=== PATIENT | female | born 1985 | race African-American/Black ===

== ENCOUNTER 2018-08-18 15:25 | Emergency (ER) | payer MEDICAID ==
[~2018-08-18] VITALS: Ht 167.6 cm; Wt 90.0 kg
[2018-08-18] MEDS ORDERED: SODIUM CHLORIDE 0.9% 1,000 ML IV ONE (15:40)
[2018-08-18] MEDS ORDERED: ACETAMINOPHEN 325MG TABLET PO ONE (16:00)
[2018-08-18 16:22] LABS: CLARITY URINE CLEAR (CLEAR); COLOR URINE YELLOW (YELLOW); KETONES URINE TRACE (NEGATIVE); LEUKOCYTE ESTERASE URINE NEGATIVE (NEGATIVE); NITRITE URINE NEGATIVE (NEGATIVE); OCCULT BLOOD URINE NEGATIVE (NEGATIVE); PROTEIN URINE NEGATIVE (NEGATIVE); SPECIFIC GRAVITY URINE 1.029 (1.005-1.030)
[2018-08-18 16:45] LABS: BASOPHILS % 0.8 % (0.0-2.0); EOSINOPHILS % 1.4 % (0.0-5.0); HEMATOCRIT. 28.8 % (36.0-48.0); HEMOGLOBIN. 9.2 g/dL (12.0-16.0); LYMPHOCYTES % 27.5 % (20.0-50.0); MEAN CORPUSCULAR HEMOGLOBIN 23.9 pg (28.0-32.0); MEAN CORPUSCULAR VOLUME 74.6 fL (81.0-99.0); MEAN PLATELET VOLUME 8.8 fl (7.4-10.4); MONOCYTES % 8.7 % (2.0-8.0); NEUTROPHILS % 61.6 % (40.0-76.0); PLATELET 301 x1000/uL (130-400); RED BLOOD CELL COUNT 3.86 mill/uL (4.2-5.4); RED CELL DISTRIBUTION WIDTH 17.4 % (11.6-14.6)
[2018-08-18 16:51] LABS: CHLORIDE 107 mEq/L (98-107)
[2018-08-18 17:15] LABS: B-HCG QUANTITATIVE 93757 mIU/mL (<3)
[2018-08-18 20:28] VITALS: BP 123/74
== END 2018-08-18 20:20 | disposition home or self-care (01) ==
LOC: ER 15:50
DX: O26.891 Other specified pregnancy related conditions, first trimester (principal); O99.011 Anemia complicating pregnancy, first trimester; Z3A.01 Less than 8 weeks gestation of pregnancy
CPT/HCPCS: 36415; 76801; 76817; 80053; 81003; 81025; 84702; 85025; 93005; 96360; 96361; 99284; J7030